=== PATIENT | female | born 1985 | race Two or more races ===

== ENCOUNTER 2024-10-20 09:53 | Outpatient (AMB) | payer MEDICAID, SELFPAY ==
--- NOTE | 2024-10-20 09:59 | AMB.GYNCLNOT ---
Vital Signs 10/20/24 10:00 Weight 75.807 kg Weight Measurement Method Standing Scale BP 133/84 H Blood Pressure Source Automatic Cuff Blood Pressure Location Left Upper Arm Position Sitting Respiration 18 Pulse 74 Pulse Source Monitor Temp 97.2 F Temp Source Oral Pulse Oximetry (%) 97 Oxygen Delivery Method Room Air Allergies/Home Meds Allergies & Medications Allergies No Known Allergies Allergy (Verified 10/20/24 10:01) Medication Reconciliation ibuprofen 600 mg tablet 600 mg PO QID PRN pain #20 tabs 01/09/24 [Rx Confirmed 10/20/24] Intake Visit Data Collection New Patient or Established: Established Patient (seen at [facility] within 3 years) Reason for Visit:: Worsening pelvic organ prolapse, feeling it more and more over the past 1-2 years, currently feeling it a lot Seen by Clinical Staff ONLY (RN/MA): No Carbider Required: Yes Do You Feel Safe at Home: Yes Authorities Contacted: N/A PCP or OBGYN visit in last 3 months: No Hx Now: No Are you currently on any form of Control: No Pain Present Currently: Yes Pain Scale Used: Tai-Culp/Numerical Pain scale:: 0 Smoking Status Smoking Status: Never smoker 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 1. Little interest or pleasure in doing things: not at all 2. Feeling down, depressed, or hopeless: not at all Total score: 0 PHQ-9 3. Trouble falling or staying asleep, or sleeping too much: Not at all 4. Feeling tired or having little energy: Not at all 5. Poor appetite or overeating: Not at all 6. Feeling bad about yourself - or that you are a failure or have let yourself or your family down: Not at all 7. Trouble concentrating on things, such as reading the newspaper or watching television: Not at all 8. Moving or speaking so slowly that other people could have noticed? - Or the opposite - being so fidgety or restless that you have been moving around a lot more than usual: not at all 9. Thoughts that you would be better off or of hurting yourself in some way: Not at all Total score: 0 If you checked off any problems, how difficult have these problems made it for you to do your work, take care of things at home, or get along with other people?: not difficult at all Source: Developed by Drs. Rainer Minor, Essie Oshea, Carlos Fuentes and colleagues, with an educational orlin from [employer]. Depression screen completed yes Social History Living Situation History Marital Status: Lives With: Family Housing: House Tobacco History Smoking Status: Never smoker Second Hand Smoke Exposure: No Alcohol History Alcohol Intake: Never Domestic Abuse History Do You Feel Safe at Home: Yes Past Medical History Past Medical History Have you ever been diagnosed with any of the following: Cardiology Problems Myocardial Infarction: No Hypercholesterolemia: No Congestive Heart Failure: No Hypertension: No Hypotension: No Respiratory Problems Chronic Obstructive Pulmonary Disease (COPD): No Genital/Urinary Problems Renal Disease: No Reproductive Problems Previous Pregnancies: Yes Endocrine Problems Diabetes Mellitus Type 1: No Diabetes Mellitus Type 2: Yes Blood Problems Anemia: Yes Clotting Problems: No Other Problems Blood Transfusions: Yes Blood Transfusion Reaction: No Anesthesia Reactions: No Cancer: No History of Present Illness ROMAN Aponte, a 39-year-old female with a history of three vaginal deliveries, presents with worsening pelvic organ prolapse. The patient first became aware of the condition approximately 8 years ago when a doctor in [facility] advised her to perform pelvic floor exercises. At that time, she could only feel the prolapse slightly, but it has progressively worsened over the years, particularly in the last 1-2 years. The patient reports feeling a significant bulge in her vagina, which has become more pronounced recently. She experiences exacerbation of symptoms with straining during constipation. The prolapse also worsens with various activities such as carrying grocery bags, running up stairs, getting into a car, and walking. Fay denies any urinary incontinence or bladder issues. The patient's quality of life has been impacted by the prolapse, affecting her ability to perform daily activities and causing discomfort. She has sought medical attention for this issue at [facility] previously, where she was told that surgery was not necessary at that time. However, due to the progression of her symptoms, she now feels that her condition has significantly worsened and is seeking further evaluation and treatment options. 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 Genitourinary: Positive for pelvic organ prolapse, negative for urinary incontinence. Musculoskeletal: Positive for pelvic pressure and discomfort with physical activities such as carrying groceries, running up stairs, getting into the car, and walking. Exam Narrative Physical exam: Gynecological: On visual examination, significant prolapse observed. With coughing, the uterus descends considerably. The entire uterus prolapses when patient coughs or strains. Assessment & Plan Diagnosis / Problem List (1) Uterine prolapse: Status: Acute (2) Procidentia of uterus: Status: Acute Plan Fay, a 39-year-old female with a history of 3 vaginal deliveries, presents with worsening pelvic organ prolapse over the past 8 years, now experiencing significant symptoms. Pelvic Organ Prolapse Assessment: Patient presents with symptomatic pelvic organ prolapse, likely uterine prolapse, that has been progressively worsening over the past 8 years. The condition was initially diagnosed in [facility] 8 years ago, before the of her last child. Physical examination reveals significant prolapse with coughing and straining, with the uterus descending. The patient reports feeling the prolapse more prominently during activities such as carrying groceries, running up stairs, getting into the car, and walking. She also experiences worsening of symptoms with constipation and straining. The prolapse is significantly impacting her quality of life. No urinary incontinence reported. Plan: - Recommend vaginal hysterectomy with vaginal support to address the prolapse - Discuss surgical options, including: - Vaginal hysterectomy (recommended) - Uterus-preserving procedure (temporary solution, approximately 10-year efficacy) - Obtain insurance approval for the recommended surgery - Schedule follow-up appointment to address any questions and confirm surgical decision - Advise patient to consult with primary care physician regarding potential adjustments to diabetes medications prior to surgery - Estimated recovery time: 3-4 weeks for basic recovery, 1-1.5 months for return to normal activities - Informed consent discussion: - Benefits: Long-term resolution of prolapse symptoms, improved quality of life - Risks: Standard surgical risks (not explicitly discussed in transcript) - Alternatives: Uterus-preserving procedure (temporary solution) - Patient to consider options and discuss with before final decision Office Procedures OB Clinic LOC & Office Proc's Nursing/Assessment Patient Status: Established Patient OB Clinic Nursing Assessment: BP Monitoring, Medication Reconciliation, Update PMH in EMR and Vital Signs OB Clinic Coordination of Care: Consent,records obtained, informed consent, Education Simp Pt/Fam and Staff clarify orders Miscellaneous Interventions: Pelvic no cultures Established Patient Charge Established Patient Point Assignment: 85 Established Patient Point Charge: EP Level 3 (80-115)
[2024-10-20 10:00] VITALS: BP 133/84; PULSE 74; RESP 18; TEMP 36.2; O2SAT 97
== END 2024-10-20 10:48 | disposition home or self-care (01) ==
LOC: HODSOBC 09:53
PROVIDERS: PCP Obstetrics & Gynecology; Referring Provider Obstetrics & Gynecology; Supervising Provider Obstetrics & Gynecology; Visit Provider Obstetrics & Gynecology
DX: N81.3 Complete uterovaginal prolapse (principal)
CPT/HCPCS: 99213; G0463

== ENCOUNTER 2024-11-24 16:04 | Outpatient (AMB) | payer MEDICAID, SELFPAY ==
[2024-11-24 16:17] VITALS: BP 113/77; PULSE 72; RESP 17; TEMP 36.7; O2SAT 98
--- NOTE | 2024-11-24 16:17 | GYNCLNT_ITS ---
Vital Signs 11/24/24 16:17 Weight 89.074 kg Weight Measurement Method Standing Scale BP 113/77 Blood Pressure Source Automatic Cuff Blood Pressure Location Right Upper Arm Position Sitting Respiration 17 Pulse 72 Pulse Source Monitor Temp 98.0 F Temp Source Temporal Artery Scan Pulse Oximetry (%) 98 Oxygen Delivery Method Room Air Allergies/Home Meds Allergies & Medications Allergies No Known Allergies Allergy (Verified 11/24/24 16:46) Medication Reconciliation ibuprofen 600 mg tablet 600 mg PO QID PRN pain #20 tabs 01/09/24 [Rx Confirmed 11/24/24] Intake Visit Data Collection New Patient or Established: Established Patient (seen at [facility] within 3 years) Reason for Visit:: PRE OP Seen by Clinical Staff ONLY (RN/MA): No Courtroom Deputy Or Calendar Clerk Required: No Do You Feel Safe at Home: Yes Authorities Contacted: N/A PCP or OBGYN visit in last 3 months: Yes Date of Last PCP or OBGYN visit: 10/20/24 Hx Now: No Are you currently on any form of Control: Yes (CONDOMS) Last menstrual period: 11/09/24 Pain Present Currently: No Pain Scale Used: Tai-Culp/Numerical Pain scale:: 0 Smoking Status Smoking Status: Never smoker DIRECTOR OF BUSINESS OPERATIONS: Past Medical History Past Medical History: No Hx Hypertension, No Hx Cancer, Yes Hx Blood Disorders, Yes Hx Anemia, No Hx Gastrointestinal Disorders, No Hx Renal Disease, No Hx Diabetes Mellitus Type 1 and Yes Hx Diabetes Mellitus Type 2 Questionnaires Covid-19 Vaccine Questionnaire Has patient been vacinated for Covid-19 Have you been vacinated for Covid-19: No PHQ-9 PHQ-2 Over the last 2 weeks, how often have you been bothered by any of the following problems? 1. Little interest or pleasure in doing things: not at all 2. Feeling down, depressed, or hopeless: not at all Total score: 0 PHQ-9 3. Trouble falling or staying asleep, or sleeping too much: Not at all 4. Feeling tired or having little energy: Not at all 5. Poor appetite or overeating: Not at all 6. Feeling bad about yourself - or that you are a failure or have let yourself or your family down: Not at all 7. Trouble concentrating on things, such as reading the newspaper or watching television: Not at all 8. Moving or speaking so slowly that other people could have noticed? - Or the opposite - being so fidgety or restless that you have been moving around a lot more than usual: not at all 9. Thoughts that you would be better off or of hurting yourself in some way: Not at all Total score: 0 If you checked off any problems, how difficult have these problems made it for you to do your work, take care of things at home, or get along with other people?: not difficult at all Source: Developed by Drs. Rainer Minor, Essie Oshea, Carlos Fuentes and colleagues, with an educational orlin from [employer]. Depression screen completed yes Social History Living Situation History Lives With: Family Housing: House Tobacco History Smoking Status: Never smoker Second Hand Smoke Exposure: No Alcohol History Alcohol Intake: Never Domestic Abuse History Do You Feel Safe at Home: Yes History of Present Illness HPI Narrative Fay is a 39-year-old female presenting for a follow-up and preoperative visit. She is scheduled to undergo a total laparoscopic corrective, total vaginal hysterectomy with cystocele and rectocele repair on November 26, 2024. The patient's primary complaint is uterine prolapse, as indicated by the planned vaginal hysterectomy. She is also experiencing pelvic organ prolapse symptoms, specifically cystocele (bladder prolapse) and rectocele (rectal prolapse). The planned surgery is expected to take approximately 1.5 to 2 hours. Fay will stay one night in the hospital and is anticipated to be discharged the following morning. Postoperative care will include catheterization overnight, with removal planned for the next morning to ensure proper urinary function. The patient has been advised to maintain bed rest for about 5 days following the procedure, after which she can gradually resume normal activities. Full recovery is expected within a month. Fay expressed interest in understanding the management of her ovaries during the procedure. She has been reassured that ovary preservation is the plan, given her age and the absence of any indication for oophorectomy. Review of Systems Review of Systems Systems Reviewed: All systems reviewed, normal except as documented Exam General General Appearance: alert, in no apparent distress and healthy appearing Head Head exam: atraumatic Neck Neck exam: Present normal inspection and trachea midline Chest Chest inspection: Present normal inspection and symmetric chest wall rise External exam: Present normal external exam; Absent tenderness Neuro Neurological exam: Present oriented X3 Psych Psychiatric exam: Present normal affect and normal mood Office Procedures OB Clinic LOC & Office Proc's Nursing/Assessment Patient Status: Established Patient OB Clinic Nursing Assessment: Medication Reconciliation, Update PMH in EMR and Vital Signs OB Clinic Coordination of Care: Complex Care and Chronic Disease 1-5, Consent,records obtained, informed consent, Education Simp Pt/Fam and Staff clarify orders Established Patient Charge Established Patient Point Assignment: 85 Established Patient Point Charge: EP Level 3 (80-115) Assessment & Plan Diagnosis / Problem List (1) Rectocele: Status: Acute (2) Cystocele, unspecified: Status: Acute (3) Procidentia of uterus: Status: Acute (4) Uterine prolapse: Status: Acute Plan Uterine prolapse with cystocele and rectocele Plan: - Perform total laparoscopic corrective, total vaginal hysterectomy with cystocele and rectocele repair on 11/26/2024. - Informed consent obtained: Discussed procedure details, duration (1.5-2 hours), and hospital stay (one night). - Postoperative care: - Catheter placement overnight, removal on postoperative day 1. - Assess ability to void before discharge. - Instruct on 5 days of bed rest at home. - Gradual return to normal activities, including driving, after 5 days. - Full recovery expected in approximately one month. - Ovarian preservation planned, unless intraoperative findings dictate otherwise. - Hospital to contact patient with pre-admission instructions and blood test requirements. - Follow-up in clinic as scheduled postoperatively.
== END 2024-11-24 16:47 | disposition home or self-care (01) ==
LOC: HODSOBC 16:04
PROVIDERS: PCP Obstetrics & Gynecology; Referring Provider Obstetrics & Gynecology; Supervising Provider Obstetrics & Gynecology; Visit Provider Obstetrics & Gynecology
DX: N81.3 Complete uterovaginal prolapse (principal)
CPT/HCPCS: 99213; G0463

== ENCOUNTER 2024-11-26 11:35 | Inpatient (IN) | payer MEDICAID, SELFPAY ==
[2024-11-25 13:11] VITALS: BMI 33.0
--- NOTE | 2024-11-25 13:30 | EKG_ITS ---
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
[2024-11-25 15:08] LABS: Basophils # (Auto) 0.1 Thou/mm3 (0.0-0.2); Basophils % (Auto) 1 % (0-2.5); Eosinophils # (Auto) 0.2 Thou/mm3 (0.0-0.5); Eosinophils % (Auto) 4 % (0-10); Hematocrit 33.6 % (36.0-46.0); Hemoglobin 11.7 g/dL (12.0-16.0); Immature Granulocytes % (Auto) 0 % (0-0); Immature Granulocytes Auto 0.01 Thou/mm3 (0.00-0.00); Lymphocytes % (Auto) 31 % (10-50); Mean Corpuscular HGB Conc 34.8 g/dl (31.0-37.0); Mean Corpuscular Hemoglobin 28.5 pg (25.0-35.0); Mean Corpuscular Volume 82 fL (80-100); Monocytes # (Auto) 0.6 Thou/mm3 (0.0-0.8); Monocytes % (Auto) 9 % (0-12); Neutrophils # (Auto) 3.5 Thou/mm3 (1.8-7.7); Neutrophils % (Auto) 55 % (37-80); Nucleated Red Blood Cell % 0 /100 WBC (0); Platelet Count 219 Thou/mm3 (140-440); RDW Standard Deviation 39.6 fL (36.4-46.3); Red Blood Count 4.11 Miln/mm3 (4.00-5.20); White Blood Count 6.4 Thou/mm3 (3.6-11.0)
[2024-11-25 15:13] LABS: HCG,Qualitative Serum Negative
[2024-11-25 15:27] LABS: Alanine Aminotransferase 10 U/L (10-49); Albumin, Serum 4.6 gm/dL (3.5-5.0); Albumin/Globulin Ratio 1.5 (1.2-2.2); Alkaline Phosphatase 75 U/L (46-116); Anion Gap 10 (7-16); BUN/Creatinine Ratio 18 Ratio (12-20); Bilirubin,Total 0.3 mg/dL (0.3-1.2); Blood Urea Nitrogen 11 mg/dL (9-23); Calcium 9.6 mg/dL (8.3-10.6); Calcium (Corrected) 9.6 mg/dL (8.5-10.1); Carbon Dioxide 25.7 mMol/L (20.0-31.0); Chloride 105 mMol/L (98-107); Creatinine (Component) 0.6 mg/dL (0.6-1.3); Estimated Creatinine Clearance 112.9 mL/min (>60); Glucose 116 mg/dL (74-106); Osmolality,Calculated 281 (275-295); Sodium 141 mMol/L (136-145); Total Protein 7.6 gm/dL (5.7-8.2); eGFR > 60 See Note
[2024-11-26] VITALS (14 sets, daily range): BP systolic 105–121; BP diastolic 64–85; PULSE 13–86; RESP 12–58; TEMP 36.4–36.6; O2SAT 96–100; BMI 33.1; BMI 33.0
[2024-11-26] MEDS: RINGERS LACTATED 1000 ML 1,000 ML 20 ML IV (07:02)
--- NOTE | 2024-11-26 10:05 | ESOP_ITS ---
Operative Note - REGISTERED RADIOGRAPHER Procedure Date of procedure: 11/26/24 Procedure Performed: Total vaginal hysterectomy Anterior and posterior colporrhaphy Posterior perineoplasty Indication: 39-year-old with complete procidentia and cystorectocele Old vaginal delivery scar on perineum with hypertrophy and discomfort Anesthesia type: General Procedure description: Informed consent was obtained. The patient was taken to the operating room. Identity was confirmed by double identifiers and she was placed on the operating table. General anesthesia was administered and the patient was positioned in the dorsal lithotomy position on Adonis stirrups. The abdomen and perineum were prepped in the usual sterile fashion and sterile drapes were applied. A Morgan catheter was placed to continuous drainage. A timeout procedure was completed. The anterior and posterior lip of the cervix were grasped using Tomlinson tenacula. The cervix was placed under traction and 10 cc of vasopressin was injected into the vaginal epithelium. A circumferential incision was made around the cervix and the vaginal mucosa was dissected off the pubocervical fascia. Dissection was carried superiorly until the vesicouterine peritoneum was identified. The same dissection was carried posteriorly until the peritoneum of the pouch of Jack was visualized. Peritoneal entry was achieved posteriorly by sharply incising the peritoneum with Metzenbaum scissors. Intraperitoneal entry was confirmed, and a duckbill speculum was placed for exposure. The uterosacral ligaments were clamped, divided, and suture-ligated. The uterine artery pedicles, as well as the tubo- ovarian and utero-ovarian pedicles, were sequentially divided using the ENSEAL Large Jaw device and suture-ligated for hemostasis. The same steps were performed on the contralateral side. Anterior entry into the peritoneal cavity was then accomplished through the vesicouterine peritoneum. The specimen was detached after the fallopian tube was divided and suture-ligated. The uterus was delivered and handed over to pathology for examination. The vaginal cuff was closed using 0 Vicryl in sequential [id number] sutures. Hemostasis was confirmed. Attention was turned to the posterior vaginal wall. Ten cc of dilute vasopressin was injected submucosally and the vaginal mucosa was incised in the midline using a scalpel. The incision was extended proximally and distally with Metzenbaum scissors, and the rectum was gently dissected off the vaginal mucosa. The rectal wall was plicated in a purse-string fashion using 3-0 Vicryl. The va ginal mucosa was then closed using 2-0 Vicryl in a running locked fashion. An anterior repair was then performed. The pubocervical fascia was plicated in the midline and the vaginal mucosa was closed using 2-0 Vicryl. A perineoplasty was also performed by excising redundant perineal tissue and reapproximating the perineal body musculature in the midline. The perineal skin and mucosa were then closed using 2-0 Vicryl in a layered fashion. Upon completion, all suture lines were inspected and noted to be hemostatic. Vaginal packing was placed, soaked in Premarin cream. The patient was cleaned, undraped, taken out of stirrups, and general anesthesia was reversed. She was transferred to the recovery room in stable and awake condition. The patient tolerated the entire procedure well. No complications were encountered. All instrument, sponge, and lap counts were correct ?2. Specimen: uterus Estimated blood loss (ml): 150 Complications: none Surgical staff Operation Date: 11/26/24 08:30 Case Staff Anesthesiologist: Jose Arreguin RN First Assistant: Norah Curtis Diagnosis Discharge Diagnosis (1) Personal history of other complications of , childbirth and the puerperium: Status: Acute (2) Rectocele: Status: Acute (3) Cystocele, unspecified: Status: Acute (4) Procidentia of uterus: Status: Acute (5) Uterine prolapse: Status: Acute Problem List Completed Was Problem List Reviewed/Reconciled?: Yes
--- NOTE | 2024-11-26 10:29 | SUR.PHASEI ---
1006: Pt received in [facility] via gurney. Report from Valarie BUSTILLOS and Dr. Dubose. Pt obtunded. Oral airway in place. Resp even, unlabored. VS stable. Vaginal packing in place. No vaginal bleeding. Morgan to gravity draining clear, pale yellow urine. 1010: Pt awakening with eye opening. Oral airway dc'd. Resp even, unlabored. 1031: Pt resting with no complaints voiced. Resp even, unlabored. VS stable. No vaginal bleeding. No c/o pain, discomfort.
--- NOTE | 2024-11-26 11:02 | SUR.PHASEII ---
1102: Pt has been resting with no complaints voiced. Resp even, unlabored. VS stable. No vaginal bleeding. No c/o pain.
--- NOTE | 2024-11-26 12:10 | SUR.PHASEII ---
1120: Received room assignment. Resp even, unlabored. VS stable. No vaginal bleeding. Denies pain. Report to 3rd floor. Pt transferred to Rm 368 in stable condition.
[2024-11-26] MEDS: SODIUM CHLORIDE 0.9% 1000 ML 1,000 ML 200 ML IV ×3 (12:35→22:39)
[2024-11-26] MEDS: ACETAMINOPHEN IVPB 1,000 MG/100 ML VIAL 250 MG IV ×3 (12:35→23:12)
[2024-11-27] VITALS: BP 112/68; PULSE 68; RESP 18; TEMP 37.1; O2SAT 97
[2024-11-27 04:00] VITALS: BP 97/65; PULSE 63; RESP 16; TEMP 36.6; O2SAT 94
[2024-11-27] MEDS: SODIUM CHLORIDE 0.9% 1000 ML 1,000 ML 200 ML IV (04:12)
[2024-11-27] MEDS: ACETAMINOPHEN IVPB 1,000 MG/100 ML VIAL 250 MG IV (05:14)
[2024-11-27 05:52] LABS: Basophils % (Auto) 0 % (0-2.5); Eosinophils % (Auto) 0 % (0-10); Hematocrit 28.3 % (36.0-46.0); Hemoglobin 9.8 g/dL (12.0-16.0); Immature Granulocytes % (Auto) 0 % (0-0); Immature Granulocytes Auto 0.03 Thou/mm3 (0.00-0.00); Lymphocytes % (Auto) 17 % (10-50); Mean Corpuscular HGB Conc 34.6 g/dl (31.0-37.0); Mean Corpuscular Hemoglobin 28.4 pg (25.0-35.0); Mean Corpuscular Volume 82 fL (80-100); Monocytes # (Auto) 0.9 Thou/mm3 (0.0-0.8); Monocytes % (Auto) 8 % (0-12); Neutrophils # (Auto) 8.6 Thou/mm3 (1.8-7.7); Neutrophils % (Auto) 74 % (37-80); Nucleated Red Blood Cell % 0 /100 WBC (0); Platelet Count 170 Thou/mm3 (140-440); RDW Standard Deviation 39.7 fL (36.4-46.3); Red Blood Count 3.45 Miln/mm3 (4.00-5.20); White Blood Count 11.6 Thou/mm3 (3.6-11.0)
[2024-11-27 06:12] LABS: Anion Gap 10 (7-16); BUN/Creatinine Ratio 18 Ratio (12-20); Blood Urea Nitrogen 9 mg/dL (9-23); Calcium 7.9 mg/dL (8.3-10.6); Carbon Dioxide 24.4 mMol/L (20.0-31.0); Chloride 109 mMol/L (98-107); Creatinine (Component) 0.5 mg/dL (0.6-1.3); Estimated Creatinine Clearance 135.6 mL/min (>60); Glucose 111 mg/dL (74-106); Osmolality,Calculated 284 (275-295); Potassium 3.8 mMol/L (3.4-5.1); Sodium 143 mMol/L (136-145); eGFR > 60 See Note
[2024-11-27 08:00] VITALS: BP 102/63; PULSE 67; RESP 19; TEMP 36; O2SAT 98
[2024-11-27] MEDS: metFORMIN 500 MG TABLET 1000 MG PO (08:23)
[2024-11-27] MEDS: DOCUSATE SOD 100 MG CAPSULE PO (08:23)
--- NOTE | 2024-11-27 08:56 | PD.GYNPROG ---
Documentation for date of: 11/27/24 ALL ROUND LOGGER Subjective Subjective Interval history: Patient doing great this morning, vaginal packing removed with minimal soakage Morgan catheter draining well with adequate urine output Exam Vital Signs Temp Pulse Resp BP Pulse Ox O2 Del Method O2 Flow Rate 96.8 F 67 19 102/63 98 Room Air 5 11/27/24 08:00 11/27/24 08:00 11/27/24 08:00 11/27/24 08:00 11/27/24 08:00 11/27/24 08:00 11/26/24 10:35 Constitutional Constitutional: no acute distress Routine HEENT Exam Head: Present normocephalic and atraumatic Eye: Present EOMI and PERRL ENT: Present mucous membranes moist Routine Neck Exam Neck: Present supple and trachea midline Routine Respiratory Exam Respiratory: Present chest non-tender, lungs clear, normal breath sounds and no resp distress Routine Cardiovascular Exam Cardiovascular: Present RRR Routine Abdominal Exam Abdominal: Present soft and normoactive bowel sounds Routine Extremities Exam Extremities: Present full ROM Routine Skin Exam Skin: Present intact and dry Routine Neurological Exam Neurological: Present alert, oriented X3 and CN II-XII intact Routine Psychiatric Exam Psychiatric: Present normal affect and normal thought process Urinary Catheter Management Cath placed during this visit: no ALL ROUND LOGGER - PN: Obj Data Labs 11/27/24 05:25 11/27/24 05:25 Labs: Laboratory Results - last 24 hr 11/27/24 05:25 WBC 11.6 H D RBC 3.45 L Hgb 9.8 L Hct 28.3 L MCV 82 MCH 28.4 MCHC 34.6 RDW Std Deviation 39.7 Plt Count 170 D Neut % (Auto) 74 Lymph % (Auto) 17 Ferry % (Auto) 8 Eos % (Auto) 0 Baso % (Auto) 0 Neut # (Auto) 8.6 H Lymph # (Auto) 2.0 Ferry # (Auto) 0.9 H Eos # (Auto) 0.0 Baso # (Auto) 0.0 Immature Gran # (Auto) 0.03 H Absolute Nucleated RBC 0.00 Immature Gran % 0 Nucleated RBC % 0 Sodium 143 Potassium 3.8 Chloride 109 H Carbon Dioxide 24.4 Anion Gap 10 BUN 9 Creatinine 0.5 L Estim Creat Clear Calc 135.6 eGFR > 60 BUN/Creatinine Ratio 18 Glucose 111 H Calculated Osmolality 284 Calcium 7.9 L D ALL ROUND LOGGER - A/P Assessment and plan (1) Personal history of other complications of , childbirth and the puerperium: Status: Acute (2) Rectocele: Status: Acute (3) Cystocele, unspecified: Status: Acute (4) Procidentia of uterus: Status: Acute Assessment and plan: Patient is postoperative day #1 status post scheduled total vaginal hysterectomy with anterior and posterior colporrhaphy as well as perineoplasty Meeting all postoperative milestones Will be discharged home today once she is able to void Home care instructions were reviewed in detail and patient verbalized understanding (5) Uterine prolapse: Status: Acute Postoperative Procedures: Procedures Operation Date: 11/26/24 08:30 Actual Procedure Side Surgeon p Hysterectomy, Vaginal w/ Anterior & Posterior Colporrhaphy, Perineoplasty Neeraj Brandon MD Time Spent With Patient Time: Total time spent is greater than 50% in coordination of care (as documented) at patient's floor/unit and/or counseling patient: Time with patient: less than 15 minutes
[2024-11-27 12:00] VITALS: BP 98/65; PULSE 70; RESP 19; TEMP 36.4; O2SAT 98
--- NOTE | 2024-11-27 12:10 | PC.NURSE ---
Pt voided and ready for dc at ride arrival. DC papers signed iv out.
== END 2024-11-27 12:39 | disposition home or self-care (01) | DRG 513 ==
LOC: S3SX 11-27 06:14
PROVIDERS: Admitting Provider Obstetrics & Gynecology; PCP Family Medicine; Referring Provider Obstetrics & Gynecology; Visit Provider Obstetrics & Gynecology
PROC: 0UT97ZZ Resection of Uterus, Via Natural or Artificial Opening (ICD-10-PCS; principal; 2024-11-26 08:30)
DX: N81.3 Complete uterovaginal prolapse (principal)
CPT/HCPCS: 36415; 80048; 80053; 84703; 85025; 86850; 86900; 86901; 93005; A4217; A4649; J0131; J0690; J0736; J1100; J1885; J2250; J2405; J2598; J2704; J3010; J3490; J7030; J7050; J7120; S0077; A9270; J0737

== ENCOUNTER 2024-12-04 09:52 | Outpatient (AMB) | payer MEDICAID, SELFPAY ==
[2024-12-04 10:05] VITALS: BP 125/84; PULSE 102; RESP 18; TEMP 36.2; O2SAT 98
--- NOTE | 2024-12-04 10:05 | AMB.GYNCLNOT ---
Vital Signs 12/04/24 10:05 Weight 75.75 kg Weight Measurement Method Standing Scale BP 125/84 Blood Pressure Source Automatic Cuff Blood Pressure Location Left Upper Arm Position Sitting Respiration 18 Pulse 102 H Pulse Source Monitor Temp 97.2 F Temp Source Oral Pulse Oximetry (%) 98 Oxygen Delivery Method Room Air Allergies/Home Meds Allergies & Medications Allergies No Known Allergies Allergy (Verified 12/15/24 09:13) Medication Reconciliation atorvastatin 10 mg tablet 10 mg PO HS 11/25/24 [History Confirmed 12/15/24] cholecalciferol (vitamin D3) 25 mcg (1,000 unit) capsule 25 mcg PO DAILY 11/25/24 [History Confirmed 12/15/24] metformin 1,000 mg tablet 1,000 mg PO BID 11/25/24 [History Confirmed 12/15/24] lactulose 10 gram/15 mL oral solution (Enulose) 10 g (15 mL) PO BID 30 days #900 mL 11/30/24 [Rx Confirmed 12/15/24] Intake Visit Data Collection New Patient or Established: Established Patient (seen at [facility] within 3 years) Reason for Visit:: SURGERY FOLLOW UP Seen by Clinical Staff ONLY (RN/MA): No Talent Acquisition Associate Required: No Do You Feel Safe at Home: Yes Authorities Contacted: N/A PCP or OBGYN visit in last 3 months: Yes Date of Last PCP or OBGYN visit: 11/27/24 Hx Now: Yes Are you currently on any form of Control: No Last menstrual period: 11/09/24 Pain Present Currently: No Pain Scale Used: Tai-Culp/Numerical Pain scale:: 0 Smoking Status Smoking Status: Never smoker 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 Menstrual regularity: irregular Flow: normal Monthly: Yes How many days does period last: 5 Age at menarche: 10 Menopausal: No Currently sexually active: Yes 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 1. Little interest or pleasure in doing things: not at all 2. Feeling down, depressed, or hopeless: not at all Total score: 0 PHQ-9 3. Trouble falling or staying asleep, or sleeping too much: Not at all 4. Feeling tired or having little energy: Not at all 5. Poor appetite or overeating: Not at all 6. Feeling bad about yourself - or that you are a failure or have let yourself or your family down: Not at all 7. Trouble concentrating on things, such as reading the newspaper or watching television: Not at all 8. Moving or speaking so slowly that other people could have noticed? - Or the opposite - being so fidgety or restless that you have been moving around a lot more than usual: not at all 9. Thoughts that you would be better off or of hurting yourself in some way: Not at all Total score: 0 If you checked off any problems, how difficult have these problems made it for you to do your work, take care of things at home, or get along with other people?: not difficult at all Source: Developed by Drs. Rainer Minor, Essie Oshea, Carlos Fuentes and colleagues, with an educational orlin from [email or web address]. Depression screen completed yes Social History Living Situation History Lives With: Family Housing: House Tobacco History Smoking Status: Never smoker Second Hand Smoke Exposure: No Alcohol History Alcohol Intake: Never Domestic Abuse History Do You Feel Safe at Home: Yes History of Present Illness HPI Narrative Adri Schmidt, a 39-year-old female, presents for a postoperative visit 8 days after undergoing a total vaginal hysterectomy with anterior and posterior repair and perineoplasty on November 26, 2024. The patient is experiencing constipation, which is being managed with medication. The dosage of her constipation medication is being increased to three times a day to prevent strain on the surgical stitches. The patient reports no significant pain, experiencing discomfort only when stretching or turning. She has some discharge, which is expected until the stitches dry. Blood in the urine has been noted, attributed to the catheter and the surgery's proximity to the bladder. The patient's daily activities have been limited post-surgery. She is able to perform light tasks such as walking, driving short distances, showering, cooking, and taking children to school. 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 Medications and Supplements - Unspecified constipation medication - Frequency being increased to 3 times a day: morning, afternoon, and evening - Used to help with constipation and reduce pressure on stitches Review of Systems Gastrointestinal: Positive for constipation. Genitourinary: Positive for vaginal discharge, blood in urine. Musculoskeletal: Positive for pain with stretching or turning. Exam Narrative Physical exam: Deferred Office Procedures OB Clinic LOC & Office Proc's Nursing/Assessment Patient Status: Established Patient OB Clinic Nursing Assessment: Medication Reconciliation, Update PMH in EMR and Vital Signs OB Clinic Coordination of Care: Education Complex Pt/Fam, Consent,records obtained, informed consent, Lab and Imaging orders, Results/Orders obtained and Staff clarify orders Established Patient Charge Established Patient Point Assignment: 85 Established Patient Point Charge: EP Level 3 (80-115) Assessment & Plan Diagnosis / Problem List (1) Personal history of other complications of , childbirth and the puerperium: Status: Acute (2) Rectocele: Status: Acute (3) Cystocele, unspecified: Status: Acute Plan Problem List - Status post total vaginal hysterectomy with anterior and posterior repair and perineoplasty - Constipation Assessment Status post total vaginal hysterectomy with anterior and posterior repair and perineoplasty performed 8 days ago. Patient experiencing constipation, managed with medication. Minimal pain reported, only with stretching or turning. Normal postoperative discharge present. Hematuria noted, attributed to recent catheterization and proximity of surgical site to bladder. Patient adhering to postoperative activity restrictions and wound care instructions. Plan - Increase constipation medication to 3 times a day: morning, afternoon, and evening - Follow up in 2 weeks for stitch check - Continue constipation medication; refill when bottle is empty - Restrict activities: no heavy lifting, pushing carts, moving furniture, mopping, sweeping, or vacuuming for 2 weeks - Light activities permitted: walking, short-distance driving, self-care, showering, cooking, taking children to school - Avoid prolonged sitting in hot environments - Continue gentle external cleaning with wet wipes; avoid internal cleaning or use of tap water - Return to work in 2 weeks
== END 2024-12-04 11:01 | disposition home or self-care (01) ==
LOC: HODSOBC 09:52
PROVIDERS: PCP Obstetrics & Gynecology; Referring Provider Obstetrics & Gynecology; Supervising Provider Obstetrics & Gynecology; Visit Provider Obstetrics & Gynecology
DX: Z48.816 Encounter for surgical aftercare following surgery on the genitourinary system (principal); K59.00 Constipation, unspecified; R31.9 Hematuria, unspecified; Z90.710 Acquired absence of both cervix and uterus
CPT/HCPCS: 99213; G0463

== ENCOUNTER 2024-12-15 09:01 | Outpatient (AMB) | payer MEDICAID, SELFPAY ==
[2024-12-15 09:12] VITALS: BP 118/80; PULSE 79; RESP 17; TEMP 36.6; O2SAT 97; BMI 33.0
--- NOTE | 2024-12-15 09:12 | AMB.GYNCLNOT ---
Vital Signs 12/15/24 09:12 Height 1.52 m Height Method Measured Weight 76.771 kg Weight Measurement Method Standing Scale BMI 33.0 BP 118/80 Blood Pressure Source Automatic Cuff Blood Pressure Location Right Upper Arm Position Sitting Respiration 17 Pulse 79 Pulse Source Monitor Temp 97.8 F Temp Source Temporal Artery Scan Pulse Oximetry (%) 97 Oxygen Delivery Method Room Air Allergies/Home Meds Allergies & Medications Allergies No Known Allergies Allergy (Verified 12/15/24 09:13) Medication Reconciliation atorvastatin 10 mg tablet 10 mg PO HS 11/25/24 [History Confirmed 12/15/24] cholecalciferol (vitamin D3) 25 mcg (1,000 unit) capsule 25 mcg PO DAILY 11/25/24 [History Confirmed 12/15/24] metformin 1,000 mg tablet 1,000 mg PO BID 11/25/24 [History Confirmed 12/15/24] lactulose 10 gram/15 mL oral solution 20 g (30 mL) PO BID 21 days #1,260 mL 11/27/24 [Rx Confirmed 12/15/24] lactulose 10 gram/15 mL oral solution (Enulose) 10 g (15 mL) PO BID 30 days #900 mL 11/30/24 [Rx Confirmed 12/15/24] metronidazole 500 mg tablet 500 mg PO Q8H 5 days #15 tabs 12/15/24 [Rx] Intake Visit Data Collection New Patient or Established: Established Patient (seen at [facility] within 3 years) Reason for Visit:: FOLLOW UP POST OP Consent obtained for Telemed Visit: No Seen by Clinical Staff ONLY (RN/MA): No Smoking Pipe Liner Required: No Do You Feel Safe at Home: Yes Authorities Contacted: N/A PCP or OBGYN visit in last 3 months: Yes Date of Last PCP or OBGYN visit: 12/04/24 Hx Now: No Are you currently on any form of Control: No Last menstrual period: 11/15/24 Pain Present Currently: No Pain Scale Used: Tai-Culp/Numerical Pain scale:: 0 Smoking Status Smoking Status: Never smoker 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 Menstrual regularity: regular Flow: normal Monthly: Yes How many days does period last: 5 Menopausal: No Currently sexually active: Yes 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 1. Little interest or pleasure in doing things: not at all PHQ-9 3. Trouble falling or staying asleep, or sleeping too much: Not at all 4. Feeling tired or having little energy: Not at all 5. Poor appetite or overeating: Not at all 6. Feeling bad about yourself - or that you are a failure or have let yourself or your family down: Not at all 7. Trouble concentrating on things, such as reading the newspaper or watching television: Not at all 8. Moving or speaking so slowly that other people could have noticed? - Or the opposite - being so fidgety or restless that you have been moving around a lot more than usual: not at all 9. Thoughts that you would be better off or of hurting yourself in some way: Not at all If you checked off any problems, how difficult have these problems made it for you to do your work, take care of things at home, or get along with other people?: not difficult at all Source: Developed by Drs. Rainer Minor, Essie Oshea, Carlos Fuentes and colleagues, with an educational orlin from [employer]. Social History Living Situation History Lives With: Family Housing: House Tobacco History Smoking Status: Never smoker Second Hand Smoke Exposure: No Alcohol History Alcohol Intake: Never Domestic Abuse History Do You Feel Safe at Home: Yes History of Present Illness HPI Narrative Patient reports experiencing vaginal bleeding, which she describes as like my pee was coming red. This symptom has been occurring almost daily, particularly noticeable on Saturday when it persisted throughout the day. However, she notes that yesterday she did not experience this symptom. Fay also mentions pain, specifically in relation to urination. She denies any fevers, chills, or other UTI symptoms. She is a 39-year-old female who is 3 weeks status post vaginal hysterectomy and cystorectocel repair. 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 She does not report any other issues or concerns related to her post-operative recovery. She has been cleared to start exercising, swimming, and doing heavy work, but advised to start slowly. Reports intermittent hematuria, occurring almost daily. Negative for fever, chills, or other UTI symptoms. Exam Narrative Physical exam: - General: Patient able to follow instructions during exam. - Genitourinary: External genitalia healed nicely. Stitches completely fine. No blood or clots visible. Stitch material present but already healed. Repair looks very good. Office Procedures OB Clinic LOC & Office Proc's Nursing/Assessment Patient Status: Established Patient OB Clinic Nursing Assessment: Medication Reconciliation, Update PMH in EMR and Vital Signs OB Clinic Coordination of Care: Complex Care and Chronic Disease 1-5, Consent,records obtained, informed consent, 4+ Authorizations needed and Staff clarify orders Established Patient Charge Established Patient Point Assignment: 95 Established Patient Point Charge: EP Level 3 (80-115) Assessment & Plan Diagnosis / Problem List (1) Personal history of other complications of , childbirth and the puerperium: Status: Acute (2) Rectocele: Status: Acute (3) Cystocele, unspecified: Status: Acute Plan Post-operative follow-up: Vaginal hysterectomy and cystorectocel repair Plan: - Continue post-operative care. - Lift restrictions on activities (except sexual intercourse). 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 - Follow up in 10 days if hematuria persists. - Consider pelvic ultrasound if symptoms do not resolve. Suspected urinary tract infection (UTI) Plan: - Prescribe antibiotics for presumed UTI. - [facility] [place]. - Patient to report back in 10 days if hematuria persists.
== END 2024-12-15 09:32 | disposition home or self-care (01) ==
PROVIDERS: PCP Obstetrics & Gynecology; Referring Provider Obstetrics & Gynecology; Supervising Provider Obstetrics & Gynecology; Visit Provider Obstetrics & Gynecology
DX: Z48.816 Encounter for surgical aftercare following surgery on the genitourinary system (principal); N81.6 Rectocele; N81.10 Cystocele, unspecified; Z90.710 Acquired absence of both cervix and uterus
CPT/HCPCS: 99213; G0463

== ENCOUNTER 2025-03-19 09:22 | Outpatient (AMB) | payer MEDICAID, SELFPAY ==
--- NOTE | 2025-03-19 09:23 | GYNCLNT_ITS ---
Vital Signs 03/19/25 09:32 Height 1.52 m Height Method Stated Weight 76.714 kg Weight Measurement Method Standing Scale BMI 33.2 BP 130/84 Blood Pressure Source Automatic Cuff Blood Pressure Location Right Upper Arm Position Sitting Respiration 17 Pulse 64 Pulse Source Monitor Temp 97.0 F Temp Source Temporal Artery Scan Pulse Oximetry (%) 98 Oxygen Delivery Method Room Air Allergies/Home Meds Allergies & Medications Allergies No Known Allergies Allergy (Verified 03/19/25 09:34) Medication Reconciliation atorvastatin 10 mg tablet 10 mg PO HS 11/25/24 [History Confirmed 03/19/25] cholecalciferol (vitamin D3) 25 mcg (1,000 unit) capsule 25 mcg PO DAILY 11/25/24 [History Confirmed 03/19/25] metformin 1,000 mg tablet 1,000 mg PO BID 11/25/24 [History Confirmed 03/19/25] lactulose 10 gram/15 mL oral solution (Enulose) 10 g (15 mL) PO BID 30 days #900 mL 11/30/24 [Rx Confirmed 03/19/25] Intake Visit Data Collection New Patient or Established: Established Patient (seen at [facility] within 3 years) Reason for Visit:: VAGINAL CONCERNS Seen by Clinical Staff ONLY (RN/MA): No Textile Converter Required: No Do You Feel Safe at Home: Yes Authorities Contacted: N/A PCP or OBGYN visit in last 3 months: Yes Date of Last PCP or OBGYN visit: 12/15/24 Hx Now: No Are you currently on any form of Control: No Pain Present Currently: Yes Pain Location: Back Pain Scale Used: Tai-Culp/Numerical Pain scale:: 4 Smoking Status Smoking Status: Never smoker 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 1. Little interest or pleasure in doing things: not at all 2. Feeling down, depressed, or hopeless: not at all Total score: 0 PHQ-9 3. Trouble falling or staying asleep, or sleeping too much: Not at all 4. Feeling tired or having little energy: Not at all 5. Poor appetite or overeating: Not at all 6. Feeling bad about yourself - or that you are a failure or have let yourself or your family down: Not at all 7. Trouble concentrating on things, such as reading the newspaper or watching television: Not at all 8. Moving or speaking so slowly that other people could have noticed? - Or the opposite - being so fidgety or restless that you have been moving around a lot more than usual: not at all 9. Thoughts that you would be better off or of hurting yourself in some way: Not at all Total score: 0 If you checked off any problems, how difficult have these problems made it for you to do your work, take care of things at home, or get along with other people?: not difficult at all Source: Developed by Drs. Rainer Minor, Essie Oshea, Carlos Fuentes and colleagues, with an educational orlin from [employer]. Depression screen completed yes Social History Living Situation History Marital Status: Lives With: Family Housing: House Tobacco History Smoking Status: Never smoker Second Hand Smoke Exposure: No Alcohol History Alcohol Intake: Never Domestic Abuse History Do You Feel Safe at Home: Yes History of Present Illness HPI Narrative Fay Schmidt presents with back pain and vaginal concerns approximately 3 months following vaginal hysterectomy with anterior-posterior repair and perineoplasty performed in November of this year. She reports that on Saturday, she began experiencing back pain, describing it as hurting in the back and right here. The pain began while she was cleaning all day. She also reports feeling like something discharged when she cleans herself, which started after the back pain began. The patient describes feeling wet when sitting down, which she attributes to leaking from the bladder. She reports having chronic constipation, stating I've always been constipated. Regarding bladder problems, she feels like she is back again, suggesting a return of previous urinary symptoms. She denies any coughing-related incontinence, stating there's nothing coming out when asked to cough. The patient mentions that she was doing heavy cleaning, including taking the tables, around the time her symptoms began. She has a history of vaginal hysterectomy with anterior-posterior repair and perineoplasty in November 2024. The patient performs cleaning activities and housework. She is a 39-year-old female. ROS: Positive for constipation, urinary incontinence, and back pain. Exam Narrative Physical exam: - Gynecologic: Pelvic examination performed. No evidence of bladder or rectal prolapse noted. No infection or bleeding observed. - Pelvic floor: Cough stress test performed with no urinary leakage demonstrated. Prolapse of vaginal cuff to hymen General General Appearance: alert, in no apparent distress and healthy appearing Head Head exam: atraumatic Neck Neck exam: Present normal inspection and trachea midline Chest Chest inspection: Present normal inspection and symmetric chest wall rise External exam: Present normal external exam; Absent tenderness Neuro Neurological exam: Present oriented X3 Psych Psychiatric exam: Present normal affect and normal mood Office Procedures OBC Clinic LOC & Office Proc's Nursing/Assessment Patient Status: Established Patient OB Clinic Nursing Assessment: Medication Reconciliation, Update PMH in EMR and Vital Signs OB Clinic Coordination of Care: Complex Care and Chronic Disease 1-5, Education Complex Pt/Fam, Consent,records obtained, informed consent and Staff clarify orders Miscellaneous Interventions: Pelvic no cultures Established Patient Charge Established Patient Point Assignment: 100 Established Patient Point Charge: EP Level 3 (80-115) Assessment & Plan Diagnosis / Problem List (1) Personal history of other complications of , childbirth and the p uerperium: Status: Acute (2) Rectocele: Status: Acute (3) Vaginal vault prolapse: Status: Acute Plan Vaginal Vault Prolapse: - Post-operative vaginal vault prolapse 3 months following vaginal hysterectomy with anterior-posterior repair and perineoplasty. - Top of vagina lacks support following uterine removal, causing prolapse with pressure. - Physical examination reveals no bladder or rectal prolapse currently. - Ligament supports still healing at 3 months post-operatively. Plan: - Manual reduction with fingers, ensuring proper hand hygiene before manipulation. - If prolapse becomes frequent, referral to specialist in [place] for surgical procedure to lift and anchor vaginal vault to intra-abdominal ligaments. - Referral will be processed through insurance with subsequent specialist contact. Urinary Incontinence: - Urinary leakage when sitting, consistent with stress incontinence. - Related to vaginal vault prolapse affecting bladder support and urinary retention. Plan: - Incontinence will be addressed with the same surgical procedure planned for vault prolapse if needed. Back Pain: - Patient developed back pain after cleaning activities. - Pain likely sciatic in nature and unrelated to vaginal vault prolapse. Plan: - Referral to primary care physician for evaluation. - Primary care may provide muscle relaxers and obtain x-rays.
[2025-03-19 09:32] VITALS: BP 130/84; PULSE 64; RESP 17; TEMP 36.1; O2SAT 98; BMI 33.2
== END 2025-03-19 09:52 | disposition home or self-care (01) ==
LOC: HODSOBC 09:22
PROVIDERS: Supervising Provider Obstetrics & Gynecology; Visit Provider Obstetrics & Gynecology
DX: Z48.816 Encounter for surgical aftercare following surgery on the genitourinary system (principal); N81.10 Cystocele, unspecified; N81.6 Rectocele; K59.09 Other constipation; Z90.710 Acquired absence of both cervix and uterus; Z98.890 Other specified postprocedural states; Z87.59 Personal history of other complications of pregnancy, childbirth and the puerperium
CPT/HCPCS: 99213; G0463